=== PATIENT | female | born 1960 | race Caucasian/White ===

== ENCOUNTER → 2020-04-21 | Outpatient (CLI) | payer OTHER ==
--- NOTE | 2020-04-21 11:09 | ECHOF ---
Referral Reason:I20.9 Angina pectoris MEASUREMENTS -------- HEIGHT: 160.0 cm WEIGHT: 97.5 kg BP: RVIDd: 2.9 cm (< 3.3) IVSd: 1.1 cm (0.6 - 1.1) LVIDd: 4.6 cm (3.9 - 5.3) LVPWd: 1.0 cm (0.6 - 1.1) IVSs: 1.5 cm LVIDs: 3.0 cm LVPWs: 1.6 cm LA Diam: 3.9 cm (2.7 - 3.8) LAESV Index (A-L): 16.91 ml/m Ao Diam: 2.7 cm (2.0 - 3.7) AV Cusp: 2.4 cm (1.5 - 2.6) MV EXCURSION: 18.221 mm (> 18.000) MV EF SLOPE: 176 mm/s (70 - 150) EPSS: 0.3 cm MV E Fei: 0.77 m/s MV DecT: 249 ms MV A Fei: 0.73 m/s MV E/A Ratio: 1.06 RAP: 5.00 mmHg RVSP: 20.73 mmHg FINDINGS -------- Sinus rhythm. This was a technically good study. The left ventricular size is normal. There is borderline concentric left ventricular hypertrophy. Overall left ventricular systolic function is normal with, an EF between 60 - 65 %. The right ventricle is normal in size. Normal LA size by volume 22+/-6 ml/m2. The right atrium is normal in size. Interatrial and interventricular septum intact. The aortic valve is trileaflet and appears structurally normal. There is trace mitral regurgitation. Trace tricuspid regurgitation present. There is no pulmonic regurgitation present. The aortic root size is normal. Normal inferior vena cava with normal inspiratory collapse consistent with estimated right atrial pre ssure of 5 mmHg. There is no pericardial effusion. CONCLUSIONS -------- 1. The left ventricular size is normal. 2. There is borderline concentric left ventricular hypertrophy. 3. Overall left ventricular systolic function is normal with, an EF between 60 - 65 %. 4. There is trace mitral regurgitation. 5. Trace tricuspid regurgitation present. 6. There is no pericardial effusion. [employer]: Magy Mace RDCS
--- NOTE | 2020-04-21 14:32 | EST ---
EXERCISE STRESS AGE: 60 SEX: F HT: 63" WT: 215 PROTOCOL: TXT STAGE: 3 DURATION OF EXERCISE: 7:15 HEART RATE REST: 70 BLOOD PRESSURE REST: 140/77 MAXIMUM HEART RATE ACHIEVED: 134 MAXIMUM BLOOD PRESSURE: 142/79 85% MPHR: 134 100% MPHR: 158 METS: 7.7 INDICATIONS: Chest pain. CLINICAL INFORMATION: Baseline EKG shows sinus rhythm, normal axis, normal intervals. Patient exercised on Malik protocol for a total of 7 minutes, achieving 8 METS, 85% of predicted maximal heart rate without chest pain or diagnostic ST-segment depression. CONCLUSION: 1. Above-average exercise tolerance. 2. Negative stress test by EKG criteria. MMODL / IJN: [id number] /
== END | disposition home or self-care (01) ==
LOC: RADNMMAIN 08:40
PROVIDERS: ATTEND Family Medicine
DX: I20.9 Angina pectoris, unspecified (principal)
CPT/HCPCS: 93017; 93306

== ENCOUNTER → 2020-11-19 | Outpatient (CLI) | payer OTHER ==
--- NOTE | 2020-11-20 07:52 | XR ---
EXAMINATION TYPE: XR chest 2V DATE OF EXAM: 11/19/2020 COMPARISON: Chest x-ray 05/09/2012 HISTORY: Cough and COPD TECHNIQUE: Frontal and lateral views of the chest are obtained. FINDINGS: There is no focal air space opacity, pleural effusion, or pneumothorax seen. The cardiac silhouette size is within normal limits. Right hemidiaphragm remains elevated. There is some questio nable interstitial prominence. The osseous structures are intact. IMPRESSION: Some questionable prominence of interstitium at the lung bases especially noted posterio rly on the lateral exam, follow-up as indicated
== END ==
LOC: RADXRMAIN 15:32
PROVIDERS: ATTEND Family Medicine
DX: J44.9 Chronic obstructive pulmonary disease, unspecified (principal)
CPT/HCPCS: 71046

== ENCOUNTER 2020-11-27 19:43 | Emergency (ER) | payer OTHER ==
[2020-11-27 20:04] VITALS: BP 148/88; PULSE 68; RESP 18; TEMP 98.7
--- NOTE | 2020-11-27 20:58 | XR ---
EXAMINATION TYPE: XR ankle complete bilateral DATE OF EXAM: 11/27/2020 COMPARISON: NONE HISTORY: Ankle pain TECHNIQUE: 3 views each ankle FINDINGS: There is soft tissue swelling over the lateral malleolus of the right ankle. Ankle mortise is anatomic bilaterally. I see no fracture nor dislocation. There is bilateral mild james ntar calcaneal spurring. There are no erosions. IMPRESSION: Soft tissue swelling at the right ankle. No fracture seen. Negative left ankle exam.
--- NOTE | 2020-11-27 20:59 | XR ---
EXAMINATION TYPE: XR foot complete LT DATE OF EXAM: 11/27/2020 COMPARISON: NONE HISTORY: Foot pain TECHNIQUE: 3 views FINDINGS: There is mild plantar calcaneal spurring. The metatarsals are intact. There are no erosions . The toes appear intact. There are no pathologic calcifications. IMPRESSION: Calcaneal spurring. No fracture seen.
--- NOTE | 2020-11-27 21:25 | ED ---
General Adult HPI - General Source: patient, RN notes reviewed Mode of arrival: wheelchair Limitations: no limitations <Timoteo Garcia - Last Filed: 11/27/20 21:21> <Richa Lange - Last Filed: 11/29/20 12:10> - General Chief complaint: Extremity Injury, Lower Stated complaint: Bilateral Ankle Pain Time Seen by Provider: 11/27/20 20:14 - History of Present Illness Initial comments: 60-year-old female presents to the emergency room for chief quit of bilateral ankle pain. Patient reports that she was walking down the stairs and thought she was on the last step. States that she injured her bilateral ankles. States they're painful to walk on that she can do so. States the left hurts more than the right. States the left foot is a small nontender as well. Denies tenderness of the right foot. Patient didn't hit her head. Did not sustain any other falls or injuries.Patient has no other complaints at this time including shortness of breath, chest pain, abdominal pain, nausea or vomiting, headache, or visual changes. (Timoteo Garcia) - Related Data Allergies Allergy/AdvReac Type Severity Reaction Status Date / Time No Known Allergies Allergy Verified 11/27/20 20:05 Review of Systems ROS Other: All systems not noted in ROS Statement are negative. <Timoteo Garcia - Last Filed: 11/27/20 21:21> ROS Other: All systems not noted in ROS Statement are negative. <Richa Lange - Last Filed: 11/29/20 12:10> ROS Statement: Those systems with pertinent positive or pertinent negative responses have been documented in the HPI. General Exam Limitations: no limitations General appearance: alert, in no apparent distress Head exam: Present: atraumatic, normocephalic, normal inspection Eye exam: Present: normal appearance, PERRL, EOMI. Absent: scleral icterus, conjunctival injection, periorbital swelling ENT exam: Present: normal exam, mucous membranes moist Neck exam: Present: normal inspection. Absent: tenderness, meningismus, lymphadenopathy Respiratory exam: Present: normal lung sounds bilaterally. Absent: respiratory distress, wheezes, rales, rhonchi, stridor Cardiovascular Exam: Present: regular rate, normal rhythm, normal heart sounds. Absent: systolic murmur, diastolic murmur, rubs, gallop, clicks GI/Abdominal exam: Present: soft, normal bowel sounds. Absent: distended, tenderness, guarding, rebound, rigid <Timoteo Garcia - Last Filed: 11/27/20 21:21> - General Exam Comments Initial Comments: Right lower extremity: No tenderness in the right foot. Patient does have tenderness to the lateral malleolus. There is mild edema of the lateral malleolus. No tenderness to the medial malleolus. Full range of motion of the right ankle however patient does have pain with complete dorsi flexion. DP pulse 2+, capillary refill less than 2 seconds. Sensation intact. Left lower extremity: Patient has mild tenderness in the left forefoot. Tenderness also noted to the anterior ankle. Mild tenderness of the lateral malleolus as well. No medial malleoli tenderness. No navicular tenderness. Sensation intact left lower extremity. DP pulse 2+, capillary refill less than 2 seconds. No edema. Sensation intact. (Timoteo Garcia) Course Vital Signs 11/27/20 20:03 Temperature 98.7 F Pulse Rate 68 Respiratory 18 Rate Blood Pressure 148/88 O2 Sat by Pulse 98 Oximetry Medical Decision Making <Timoteo Garcia - Last Filed: 11/27/20 21:21> <Richa Lange - Last Filed: 11/29/20 12:10> - Medical Decision Making X-ray of the left foot is negative. X-ray of the right ankle shows soft tissue swelling of the lateral malleolus no fracture seen. Negative left ankle exam. Patient was wrapped with an Avelino wrap bilaterally. Recommended follow-up with orthopedics as necessary. Discussed to return here for any worsening symptoms. Discussed rice therapy and Motrin and Tylenol for pain. (Timoteo Garcia) I was available for consultation in the emergency department. The history and physical exam were done by the midlevel provider. I was consulted for this patients care. I reviewed the case with the midlevel provider and based on their presentation of the patient, I agree with the assessment, medical decision making and plan of care as documented. Chart was dictated using iSpy[employer] dictation software. Attempts were made to correct any dictation errors however some typographical errors may persist. Patient was seen during a national state of emergency due to the Covid-19 pandemic. (Richa Lange) Disposition Is patient prescribed a controlled substance at d/c from ED?: No Time of Disposition: 21:24 <Timoteo Garcia - Last Filed: 11/27/20 21:21> <Richa Lange - Last Filed: 11/29/20 12:10> Clinical Impression: Bilateral ankle pain Disposition: HOME SELF-CARE Condition: Good Instructions (If sedation given, give patient instructions): Ankle Sprain (ED) Additional Instructions: Please take Motrin and Tylenol for pain. Please rest ice and elevate the ankles. Follow-up with orthopedics. Return to the emergency room for any wor sening symptoms. Referrals: Rufino Cole DO [Primary Care Provider] - 1-2 days Reji Mcarthur MD [STAFF PHYSICIAN] - 1-2 days
== END 2020-11-27 21:37 | disposition home or self-care (01) ==
LOC: EC 19:43
DX: M25.571 Pain in right ankle and joints of right foot (principal); M25.572 Pain in left ankle and joints of left foot
CPT/HCPCS: 99284

== ENCOUNTER → 2023-07-21 | Outpatient (CLI) | payer MEDICARE, BC ==
--- NOTE | 2023-07-21 08:47 | MM ---
Reason for Exam: Screening (asymptomatic). Last mammogram was performed 21 year(s) and 5 month(s) ago. Patient History: Menarche at age 12. First Full-Term at age 19. Postmenopausal. Risk Values: Madison 5 year model risk: 1.4%. NCI Lifetime model risk: 5.1%. Prior Study Comparison: No prior studies available for comparison. Tissue Density: The breast tissue is heterogeneously dense. This may lower the sensitivity of mammography. Findings: Analyzed By CAD. There is no suspicious group of microcalcifications or new suspicious mass in either breast. Vascular calcifications within both breasts. Overall Assessment: Benign, BI-RAD 2 Management: Screening Mammogram of both breasts in 1 year. A clinical breast exam by your physician is recommended on an annual basis and results should be correlated with mammographic findings. Note on Madison scores and lifetime risk: 1. A Madison score greater than 3% is considered moderate risk. If this is the case, consider specialist referral to assess eligibility for a risk reducing agent. If overall lifetime risk for the development of breast cancer is 20% or higher, the patient may qualify for future screening with alternating mammogram and breast MRI. Electronically signed and approved by: Brian Chacon D.O.
== END | disposition home or self-care (01) ==
LOC: RADMAMWWP 07:49
PROVIDERS: ATTEND Family Medicine
DX: Z12.31 Encounter for screening mammogram for malignant neoplasm of breast (principal); Z78.0 Asymptomatic menopausal state
CPT/HCPCS: 77063; 77067

== ENCOUNTER → 2025-01-07 | Outpatient (CLI) | payer MEDICARE, BC ==
[2025-01-07 19:32] LABS: ALT 24 U/L (8-44); AST 20 U/L (13-35); Albumin 4.1 g/dL (3.8-4.9); Albumin/Globulin Ratio 1.78 Ratio (1.60-3.17); Alkaline Phosphatase 97 U/L (41-126); BUN/Creat Ratio 20.86 Ratio (12.00-20.00); Blood Urea Nitrogen 14.6 mg/dL (9.0-27.0); Carbon Dioxide 19.1 mmol/L (21.6-31.8); Chloride 110 mmol/L (96-109); Chol/HDL Ratio 4.07 Ratio; Globulin 2.3 g/dL (1.6-3.3); Glucose 92 mg/dL (70-110); LDL Cholesterol,Calculated 135.9 mg/dL (0.0-131.0); Potassium 4.2 mmol/L (3.5-5.5); Sodium 141 mmol/L (135-145); Total Bilirubin 0.5 mg/dL (0.3-1.2); Total Protein 6.4 g/dL (6.2-8.2)
[2025-01-07 19:36] LABS: NT-Pro-B-Type Natriuretic Pept 108 pg/mL (0-125)
== END | disposition home or self-care (01) ==
LOC: LABWHC1 13:19
PROVIDERS: ATTEND Internal Medicine Interventional Cardiology
DX: E78.2 Mixed hyperlipidemia (principal); R06.09 Other forms of dyspnea
CPT/HCPCS: 36415; 80053; 80061; 83880

== ENCOUNTER → 2025-01-07 | Outpatient (CLI) | payer MEDICARE, BC ==
--- NOTE | 2025-01-07 13:33 | XR ---
EXAMINATION TYPE: XR chest 2V DATE OF EXAM: 01/07/2025 1:16 PM COMPARISON: 11/19/2020 CLINICAL INDICATION: Female, 64 years old with history of R06.09 OTHER FORMS OF DYSPNEA: Shortness of breath TECHNIQUE: XR chest 2V views of the chest are obtained. FINDINGS: Scattered senescent parenchymal changes noted. Hyperinflation compatible with COPD. No evidence for infiltrate. No evidence for atelectasis. Heart size is stable. Mediastinal structures are stable and grossly unremarkable. No evidence for hilar prominence. Degenerative changes dorsal spine. IMPRESSION: 1. No evidence for acute pulmonary disease. [facility], , 01/07/2025 1:31 PM
== END | disposition home or self-care (01) ==
LOC: RADXRMAIN 13:01
PROVIDERS: ATTEND Internal Medicine Interventional Cardiology
DX: E78.2 Mixed hyperlipidemia (principal); R06.09 Other forms of dyspnea
CPT/HCPCS: 71046